=== PATIENT | male | born 1995 | race Caucasian/White ===

== ENCOUNTER 2022-01-30 11:03 | Emergency (ER) | payer OTHER ==
[2022-01-30 12:19] LABS: BASO # 0.01 K/mm3 (0.02-0.10); HEMATOCRIT 45.6 % (42.0-52.0); HEMOGLOBIN 15.5 g/dL (13.5-18.0); LYMPH# 1.14 K/mm3 (1.50-4.00); MEAN CELL VOLUME 102 fl (78-100); MEAN CORPUSCULAR HEMOGLOBIN 35 pg (27-31); MEAN CORPUSCULAR HGB CONC 34 g/dL (33-37); MEAN PLATELET VOLUME 9.5 fl (7.4-10.4); MONO # 0.72 K/mm3 (0.20-0.80); NEU # 8.11 K/mm3 (1.40-6.50); PLATELET COUNT 170 K/mm3 (130-400); RED BLOOD COUNT 4.47 M/mm3 (4.20-5.60); RED CELL DISTRIBUTION WIDTH 12.7 % (11.5-14.5)
[2022-01-30 12:24] LABS: POTASSIUM 3.8 mmol/L (3.5-5.1); SODIUM 133 mmol/L (136-145)
[2022-01-30 12:29] LABS: URINE APPEARANCE CLEAR; URINE BILIRUBIN NEGATIVE (NEGATIVE); URINE BLOOD NEGATIVE (NEGATIVE); URINE COLOR YELLOW; URINE GLUCOSE NEGATIVE (NEGATIVE); URINE KETONE NEGATIVE (NEGATIVE); URINE LEUKOCYTE ESTERASE NEGATIVE (NEGATIVE); URINE MUCUS PRESENT (NOT PRESENT); URINE NITRATE NEGATIVE (NEGATIVE); URINE PROTEIN(semi-quant) TRACE (NEGATIVE); URINE UROBILINOGEN NORMAL (NORMAL); URINE WBC 0-1 /hpf (0-3)
[2022-01-30 12:30] LABS: ALBUMIN 4.7 g/dL (3.5-5.0)
[2022-01-30 12:33] LABS: TOTAL PROTEIN 8.1 g/dL (6.4-8.3)
[2022-01-30 12:38] LABS: AST-SGOT 1285 U/L (5-34)
[2022-01-30 12:39] LABS: ALT/SGPT 374 U/L (0-55)
[2022-01-30 12:42] LABS: CALCIUM 9.8 mg/dL (8.3-10.5)
[2022-01-30 12:43] LABS: GLUCOSE 90 mg/dL (75-110)
[2022-01-30 12:44] LABS: CARBON DIOXIDE 25 mmol/L (22-29)
[2022-01-30 12:45] LABS: TOTAL BILIRUBIN 1.3 mg/dL (0.2-1.2)
[2022-01-30 12:47] LABS: TROPONIN-I < 0.030 ng/mL (<0.030)
[2022-01-30 12:57] LABS: LIPASE 78 U/L (8-78)
[2022-01-30] MEDS ORDERED: CEPHALEXIN500 M1 PO (14:31)
[2022-01-30 14:45] VITALS: BP 131/101
== END 2022-01-30 14:45 | disposition home or self-care (01) ==
LOC: ED 11:03
PROVIDERS: Nurse Practitioner
DX: N10 Acute pyelonephritis (principal); K76.0 Fatty (change of) liver, not elsewhere classified; F10.10 Alcohol abuse, uncomplicated; R74.8 Abnormal levels of other serum enzymes; F17.210 Nicotine dependence, cigarettes, uncomplicated; Z20.822 Contact with and (suspected) exposure to COVID-19; Z28.310 Unvaccinated for COVID-19
CPT/HCPCS: J0696; J7030; Q9967

== ENCOUNTER 2023-10-11 21:13 | Emergency (ER) | payer OTHER ==
[~2023-10-11 21:13] MED LIST: Benzonatate 100 MG CAP PO ONE; CEPHALEXIN500 M1 PO; Folic Acid 1 MG TAB PO ONE; LIBRIUM 10M10 MG/CAP PO; Multivitamin TAB PO ONE; NS 1,000 ML IV ONE; Ondansetron 4 MG/2 ML VIAL IV ONE; Thiamine 100 MG TAB PO ONE
[2023-11-29 15:43] LABS: ALBUMIN 4.3 g/dL (3.5-5.0); TOTAL BILIRUBIN 0.3 mg/dL (0.2-1.2); TOTAL PROTEIN 7.6 g/dL (6.4-8.3)
[2023-11-29 15:53] LABS: BASO # 0.01 K/mm3 (0.02-0.10); EOS # 0.01 K/mm3 (0.04-0.40); EOS % 0.1 % (0.0-4.0); HEMOGLOBIN 14.6 g/dL (13.5-18.0); LYMPH# 3.46 K/mm3 (1.50-4.00); MEAN CELL VOLUME 102 fl (78-100); MEAN CORPUSCULAR HEMOGLOBIN 34 pg (27-31); MEAN CORPUSCULAR HGB CONC 33 g/dL (33-37); MONO # 0.72 K/mm3 (0.20-0.80); NEU # 4.42 K/mm3 (1.40-6.50); PLATELET COUNT 312 K/mm3 (130-400); RED CELL DISTRIBUTION WIDTH 12.1 % (11.5-14.5); WHITE BLOOD COUNT 8.6 K/mm3 (4.8-10.8)
== END 2023-10-12 07:05 | disposition home or self-care (01) ==
LOC: ED 21:13
PROVIDERS: Nurse Practitioner
DX: F10.129 Alcohol abuse with intoxication, unspecified (principal); R05.9 Cough, unspecified
CPT/HCPCS: J2405; J7030